=== PATIENT | male | born 1960 | race Caucasian/White ===

== ENCOUNTER 2019-07-19 17:38 | Emergency (ER) | payer OTHER, SELFPAY ==
[2019-07-19 17:40] VITALS: BP 138/82; PULSE 60; RESP 12; TEMP 36.7; O2SAT 97
--- NOTE | 2019-07-19 17:52 | DI.RAD.S_ITS ---
PROCEDURE: XR CHEST 1V INDICATIONS: chest pain TECHNIQUE: One view of the chest was acquired. COMPARISON: None. FINDINGS: Surgical changes and devices: None. Lungs and pleura: Lungs are clear. No pleural effusions or pneumothorax. Mediastinum: Mediastinal contours appear normal. Heart size is normal. Bones and chest wall: No suspicious bony lesions. Overlying soft tissues appear unremarkable. IMPRESSION: No acute cardiopulmonary abnormalities or focal airspace disease. Dictated by: Dilan Andrade M.D. on 07/19/2019 at 18:59 Approved by: Dilan Andrade M.D. on 07/19/2019 at 18:59
[2019-07-19] MEDS: ASPIRIN 81 MG CHEW TAB 324 MG PO (17:57)
[2019-07-19 18:00] VITALS: BP 138/79; PULSE 59; RESP 18; O2SAT 98
--- NOTE | 2019-07-19 18:04 | ED_ITS ---
HPI - Chest Pain General Chief Complaint: Chest Pain Stated Complaint: chest pressure Time Seen by Provider: 07/19/19 18:03 Source: patient Mode of arrival: Ambulatory Limitations: no limitations History of Present Illness HPI narrative: 59-year-old male who initial chief complaint was chest pressure however upon further evaluation patient describes more of palpitations. He states he has had palpitations in the past they seem to be more frequent recently. He states that yesterday he was at work sitting in his chair when he had several what he describes as hard beats in a row. He states he did have some chest pressure at that time but it resolved when the palpitations resolved. No chest pain. No shortness of breath. No lightheadedness. Also describes other sensations in his lower extremities to include tingling down to his toes. He is not currently having that. He also states that it feels like he has a phone in his left front pocket that is vibrating. No history of diabetes. No history of neuropathy. No back pain. Related Data Allergies Allergy/AdvReac Type Severity Reaction Status Date / Time No Known Drug Allergies Allergy Verified 07/19/19 17:52 Review of Systems Constitutional Constitutional: Denies fever(s), Denies headache(s) and Denies weakness ENT Ears, Nose, Mouth, and Throat: Denies vertigo, Denies dizziness, Denies headache(s) and Denies disequilibrium Cardiovascular Cardiovascular: Denies chest pain, Denies syncope, Denies lightheadedness, Denies radiating jaw, neck or arm pain, Reports palpitations and Denies dyspnea Respiratory Respiratory: Denies dyspnea Gastrointestinal Gastrointestinal: Denies abdominal pain, Denies nausea and Denies vomiting Genitourinary Genitourinary: Denies dysuria Musculoskeletal Musculoskeletal: Denies myalgias, Denies arthralgias and Reports tingling Integumentary/Breasts Skin/Breast: Denies lesions and Denies rash Neurologic Neurologic: Denies behavioral changes, Denies confusion, Denies vertigo, Denies dizziness, Denies syncope, Denies headache(s), Reports tingling, Reports paresthesias, Denies disequilibrium and Denies weakness Psychiatric Psychiatric: Denies behavioral changes and Denies confusion Endocrine Endocrine: Reports palpitations Hematologic/Lymphatic Hematologic/Lymphatic: Denies easy bleeding and Denies easy bruising Allergic/Immunologic Allergic/Immunologic: Denies urticaria Patient History Medical History Muscle spasm of right shoulder (Inactive) Social History Smoking Status: Former smoker Smoking Status: Former smoker alcohol intake frequency: 3 or more drinks per day Exam Initial Vital Signs Initial Vital Signs: Vital Signs Temperature 98.1 F 07/19/19 17:40 Pulse Rate 60 07/19/19 17:40 Respiratory Rate 12 07/19/19 17:40 Blood Pressure 138/82 07/19/19 17:40 Pulse Oximetry 97 07/19/19 17:40 Const General: cooperative, healthy appearing, comfortable, well developed and well groomed Limitations: mental status not altered HENMT Head: normal to inspection and normocephalic Resp Effort & Inspection: normal respiratory effort Auscultation: clear to auscultation bilaterally Cardio Rate: regular rate Rhythm: regular rhythm Pulses: radial pulses present and dorsalis pedis present GI Inspection: non-distended Palpation: soft Skin Lesions: no lesions Rashes: no rashes Neuro General: alert, awake and oriented x3 Cognition: normal cognition Speech: speech normal Gait: normal gait Motor: muscle tone normal throughout Sensory Exam: no sensory deficits noted Extrem General: normal to inspection and capillary refill normal Psych Appearance: grossly normal and well kempt Scores GCS Kartik coma scale eye opening: Spontaneous Kartik coma scale verbal response: Orientated [place] coma scale motor response: Obey commands Kartik coma scale total score: 15 HEART Score Heart Score history: Slightly Suspicious Heart Score EKG: Normal Heart Score Age: 45-64 years old Heart Score risk factors: No known risk factors Heart Score troponin: < or = to normal limit Heart Score Total: 1 Course Orders Ordered: ED Orders 07/19/19 17:52 XR chest 1V Stat EKG-12 Lead Stat 07/19/19 18:28 BNP [NT-proBNP (BNP-Adult 18+)] Stat Complete Blood Count AUTO DIFF Stat Comprehensive Metabolic Panel Stat Lipase Stat Partial Thromboplastin Time Stat Prothrombin Time INR Stat TSH w/ Reflex to FT4 Stat Troponin & CK Cardiac Panel Stat Discontinued Medications Aspirin (Aspirin Chew) 324 mg PO NOW ONE Stop: 07/19/19 17:53 Last Admin: 07/19/19 17:57 Dose: 324 mg Documented by: FARHEEN Vital Signs Vital signs: Vital Signs - 8 hr 07/19/19 18:31 07/19/19 19:00 07/19/19 20:02 Pulse Rate 65 59 L 65 Respiratory Rate 12 18 16 Blood Pressure 145/78 H Blood Pressure [Left Arm] 142/82 H 140/81 Pulse Oximetry 98 98 98 MDM - Chest Pain Lab Data Attestation: I reviewed the patient's lab results. Result diagrams: 07/19/19 18:28 07/19/19 18:28 Labs: Lab Results 07/19/19 07/19/19 07/19/19 Range/Units 18:28 18:28 18:28 WBC 6.0 (4.5-11.0) X10^3/uL RBC 4.91 (4.5-5.9) X10^6/uL Hgb 15.1 (13.5-17.5) g/dL Hct 44.0 (41-53) % MCV 89.7 (80-100) fL MCH 30.7 (26-34) PG MCHC 34.2 (30-36) % RDW 13.2 (11.6-14.8) % Plt Count 186 (150-400) X10^3/uL Neut % (Auto) 59.1 (50-75) % Lymph % (Auto) 31.7 (25-40) % Beckham % (Auto) 7.4 (3-14) % Eos % (Auto) 1.0 L (2-4) % Baso % (Auto) 0.8 (0-2) % Neut # (Auto) 3600 (7223-8043) /uL Lymph # (Auto) 1900 (8877-1859) /uL Beckham # (Auto) 400 (0-900) /uL Eos # (Auto) 100 (0-450) /uL Baso # (Auto) 0 (0-100) /uL PT 12.2 (10.1-12.7) SECONDS INR 1.1 (0.9-1.3) APTT 36 (26.4-36.2) SECONDS Sodium 139 (137-145) mmol/L Potassium 3.7 (3.4-5.1) mmol/L Chloride 102 (98-107) mmol/L Carbon Dioxide 27 (22-32) mmol/L BUN 16 (9-20) mg/dL Creatinine 0.70 (0.66-1.25) mg/dL Estimated GFR > 60.0 (>60) mL/min BUN/Creatinine Ratio 22.9 H (6-22) Glucose 105 H (70-100) mg/dL Calcium 9.6 (8.4-10.2) mg/dL Total Bilirubin 1.5 H (0.2-1.3) mg/dL AST 39 (17-59) IU/L ALT 46 (<50) IU/L Alkaline Phosphatase 71 (38-126) U/L Total Creatine Kinase 63 (55-170) U/L CK-MB (CK-2) TNP CK-MB (CK-2) Rel Index TNP Troponin I < 0.012 (0.01-0.034) ng/mL NT-Pro-B Natriuret Pep 55 (<125) pg/mL Total Protein 7.9 (6.3-8.2) g/dL Albumin 4.7 (3.5-5.0) g/dL Globulin 3.2 (1.7-4.1) g/dL Albumin/Globulin Ratio 1.5 (1.0-2.8) Lipase 250 (23-300) U/L TSH (0.47-4.68) uIU/mL 07/19/ Range/Units 18:28 WBC (4.5-11.0) X10^3/uL RBC (4.5-5.9) X10^6/uL Hgb (13.5-17.5) g/dL Hct (41-53) % MCV (80-100) fL MCH (26-34) PG MCHC (30-36) % RDW (11.6-14.8) % Plt Count (150-400) X10^3/uL Neut % (Auto) (50-75) % Lymph % (Auto) (25-40) % Beckham % (Auto) (3-14) % Eos % (Auto) (2-4) % Baso % (Auto) (0-2) % Neut # (Auto) (0691-4271) /uL Lymph # (Auto) (6308-2275) /uL Beckham # (Auto) (0-900) /uL Eos # (Auto) (0-450) /uL Baso # (Auto) (0-100) /uL PT (10.1-12.7) SECONDS INR (0.9-1.3) APTT (26.4-36.2) SECONDS Sodium (137-145) mmol/L Potassium (3.4-5.1) mmol/L Chloride (98-107) mmol/L Carbon Dioxide (22-32) mmol/L BUN (9-20) mg/dL Creatinine (0.66-1.25) mg/dL Estimated GFR (>60) mL/min BUN/Creatinine Ratio (6-22) Glucose (70-100) mg/dL Calcium (8.4-10.2) mg/dL Total Bilirubin (0.2-1.3) mg/dL AST (17-59) IU/L ALT (<50) IU/L Alkaline Phosphatase (38-126) U/L Total Creatine Kinase (55-170) U/L CK-MB (CK-2) CK-MB (CK-2) Rel Index Troponin I (0.01-0.034) ng/mL NT-Pro-B Natriuret Pep (<125) pg/mL Total Protein (6.3-8.2) g/dL Albumin (3.5-5.0) g/dL Globulin (1.7-4.1) g/dL Albumin/Globulin Ratio (1.0-2.8) Lipase (23-300) U/L TSH 1.64 (0.47-4.68) uIU/mL Imaging Data Chest x-ray: Radiologist's Impression: [address] [address] XRay Report Signed Patient: Antwan Oneill JMR#: [id number] : 2Acct:[id number] Age/Sex: 59 / MDate of Service: 07/19/19 Loc: ED Accession Number: [id number] Procedure: XR chest 1V Ordering Provider: Jamar Thompson MD PROCEDURE: XR CHEST 1V INDICATIONS: chest pain TECHNIQUE: One view of the chest was acquired. COMPARISON: None. FINDINGS: Surgical changes and devices: None. Lungs and pleura: Lungs are clear. No pleural effusions or pneumothorax. Mediastinum: Mediastinal contours appear normal. Heart size is normal. Bones and chest wall: No suspicious bony lesions. Overlying soft tissues appear unremarkable. IMPRESSION: No acute cardiopulmonary abnormalities or focal airspace disease. Dictated by: Dilan Andrade M.D. on 07/19/2019 at 18:59 Approved by: Dilan Andrade M.D. on 07/19/2019 at 18:59 ECG Data Attestation: I personally reviewed and interpreted this ECG as follows: Prior ECG tracings: not available for review Interpretation: Sinus bradycardia Ventricular rate of 58 Normal QRS Normal QTC No ST T wave changes MDM Narrative Medical decision making narrative: Patient with negative workup here. Low suspicion for ACS. He has a low risk heart score. Upon further questioning it does appear that his symptoms were palpitations not chest pain. He did have some symptoms that corresponded to PVCs on the monitor. His EKG was unremarkable. I discussed this with the patient. I do suspect that he is having symptomatic PVCs. We did discuss potentially getting a Holter monitor ordered by his primary provider. We did discuss return precautions and follow- up instructions. He expressed understanding and agreement with plan. Discharge Plan Departure Patient Disposition: Home Clinical Impression: Heart palpitations, Symptomatic PVCs Discharge Date/Time: 07/19/19 20:02 Instructions: Premature Ventricular Beats Activity Restrictions/Additional Instructions: Recommend you contact your primary doctor to discuss the indications for a Holter monitor. Return to the emergency department for any new or worsening sym ptoms like we discussed.
[2019-07-19 18:31] VITALS: BP 142/82; PULSE 65; RESP 12; O2SAT 98
[2019-07-19 18:41] LABS: Add Manual Diff / Slide Review NO; Basophils Absolute Auto 0 /uL (0-100); Basophils Percent Auto 0.8 % (0-2); Eosinophils Absolute Auto 100 /uL (0-450); Hemoglobin 15.1 g/dL (13.5-17.5); Lymphocytes Absolute Auto 1900 /uL (1100-4500); Lymphocytes Percent Auto 31.7 % (25-40); Mean Corpuscular HGB Conc 34.2 % (30-36); Mean Corpuscular Hemoglobin 30.7 PG (26-34); Mean Corpuscular Volume 89.7 fL (80-100); Monocytes Absolute Auto 400 /uL (0-900); Monocytes Percent Auto 7.4 % (3-14); Neutrophils Absolute Auto 3600 /uL (1500-7000); Neutrophils Percent Auto 59.1 % (50-75); Platelet Count 186 X10^3/uL (150-400); Red Blood Cell Count 4.91 X10^6/uL (4.5-5.9); Red Cell Distribution Width 13.2 % (11.6-14.8)
[2019-07-19 18:46] LABS: INR 1.1 (0.9-1.3); Prothrombin Time 12.2 SECONDS (10.1-12.7)
[2019-07-19 18:49] LABS: PTT Partial Thromboplastin Tim 36 SECONDS (26.4-36.2)
[2019-07-19 18:54] LABS: Alanine Aminotransferase 46 IU/L (<50); Albumin 4.7 g/dL (3.5-5.0); Albumin Globulin Ratio 1.5 (1.0-2.8); Alkaline Phosphatase 71 U/L (38-126); Aspartate Aminotransferase 39 IU/L (17-59); BUN Creatinine Ratio 22.9 (6-22); Bilirubin Total 1.5 mg/dL (0.2-1.3); Blood Urea Nitrogen 16 mg/dL (9-20); Calcium 9.6 mg/dL (8.4-10.2); Carbon Dioxide 27 mmol/L (22-32); Chloride 102 mmol/L (98-107); Creatine Kinase 63 U/L (55-170); Estimated Glomerular Filt Rate > 60.0 mL/min (>60); Globulin 3.2 g/dL (1.7-4.1); Glucose 105 mg/dL (70-100); Lipase 250 U/L (23-300); Potassium 3.7 mmol/L (3.4-5.1); Sodium 139 mmol/L (137-145); Total Protein 7.9 g/dL (6.3-8.2)
[2019-07-19 18:56] LABS: HEMOLYSIS < 15 (0-50)
--- NOTE | 2019-07-19 18:59 | PC.NURSE ---
pt reports, always has irregular heart beat for 1.5 months, worsen today. also drinks alot and last drink thursday, dyspneic on exertion, denies nausea or vomiting. denies fever,coughing or chills.
[2019-07-19 19:00] VITALS: BP 140/81; PULSE 59; RESP 18; O2SAT 98
[2019-07-19 19:08] LABS: NT-proBNP (BNP-Adult 18+) 55 pg/mL (<125); Troponin I < 0.012 ng/mL (0.01-0.034)
[2019-07-19 19:36] LABS: TSH w/ Reflex to FT4 1.64 uIU/mL (0.47-4.68)
[2019-07-19 20:02] VITALS: BP 145/78; PULSE 65; RESP 16; O2SAT 98
== END 2019-07-19 20:02 | disposition home or self-care (01) ==
PROVIDERS: Emergency Medicine; Emergency Provider Emergency Medicine
DX: R00.2 Palpitations (principal); I49.3 Ventricular premature depolarization
CPT/HCPCS: 36415; 71045; 80053; 82550; 83690; 83880; 84443; 84484; 85025; 85610; 85730; 93005; 99284; 99285

== ENCOUNTER 2023-08-18 11:42 | Day surgery (SDC) | payer OTHER, SELFPAY ==
--- NOTE | 2023-08-18 | PATH_ITS ---
[facility] Accession Number: [id number] No. of containers..01 Tissue . 01 Material submitted: . esophagus, E-G Junction - GE JUNCTION . 01 Diagnosis: GASTROESOPHAGEAL JUNCTION, BIOPSY: Columnar mucosa with mild chronic inflammation. Negative for intestinal metaplasia. Negative for dysplasia and malignancy. . [facility] [address] 08/21/2023 1455 Local . 01 Electronically signed: . Nat Dooley MD, Pathologist NPI- [id number] . 01 Gross description: . GE JUNCTION: Received in formalin is 1 fragment(s) of roman, soft tissue measuring 0.3 x 0.2 x 0.2 cm submitted entirely in 1 cassette(s) /PATRIZIA 08/19/20232034 Local . 01 Microscopic: . An ABPAS stain was performed to evaluate for intestinal metaplasia, and is negative. The control stain showed appropriate reactivity. . 01 Pathologist provided ICD-10: R10.13 . 01 CPT . 447859, 712369 Specimen Comment: A courtesy copy of this report has been sent to [phone] Performed at: 01 [facility] [address] [place] [address], [place], [place] [id number] MD Anastacio Ag MD Phone: [phone]
--- NOTE | 2023-08-18 13:06 | SUR.PREOP ---
Delay for colonoscopy explained to patient and . V/U. Patient would like to proceed.
[2023-08-18 13:34] VITALS: BP 144/74; PULSE 61; RESP 18; TEMP 36.1; O2SAT 98
[2023-08-18] MEDS: LACTATED RINGERS 1,000 ML 42 ML IV (13:48)
--- NOTE | 2023-08-18 14:28 | P.HP_ITS ---
History of Present Illness History of Present Illness Date Patient Seen: 08/18/23 Time Patient Seen: 14:29 Chief complaint: Screening Colonoscopy Narrative: 63-year-old male here for screening colonoscopy and diagnostic Esophagogastroduodenoscopy. Last colonoscopy 10 years ago normal. No family history of intestinal malignancy. He occasionally has difficulty swallowing the sensation that something is stuck in his throat. He has a history of GERD for which he takes omeprazole as needed. [facility] Medical History Muscle spasm of right shoulder Social History Smoking Status: Former smoker alcohol intake: current Meds Home Medications and Allergies Home Medications Medication Instructions Recorded Confirmed Type losartan 50 mg tablet 50 mg PO DAILY blood pressure 08/18/23 08/18/23 History Allergies Allergy/AdvReac Type Severity Reaction Status Date / Time No Known Drug Allergies Allergy Verified 08/18/23 13:26 Exam Vital Signs (past 8 hours): - 08/18/23 13:34 Temperature 96.9 F L Pulse Rate 61 Respiratory Rate 18 Blood Pressure 144/74 H Pulse Oximetry 98 Oxygen Delivery Method Room Air Oxygen Delivery Method Room Air Narrative Exam Narrative: General adult man alert oriented no acute distress Chest nonlabored respiration Extremities warm well perfused Assessment & Plan Assessment and plan (1) Esophageal dysphagia: Status: Acute Assessment & Plan narrative: 63-year-old man with esophageal dysphagia here for diagnostic esophagogastroduodenoscopy and colonoscopy. Technical details were discussed. Risks, benefits, alternatives explained. Risks including but not limited to myocardial infarction, aspiration, bleeding, pain, missed lesion, incomplete examination, need for further radiographic studies, intestinal injury, and need for major abdominal surgery were discussed. All questions were answered to their satisfaction, and they are in agreement with this plan.
[2023-08-18 15:05] VITALS: BP 107/58; PULSE 60; RESP 15; TEMP 36.9; O2SAT 97
[2023-08-18 15:10] VITALS: BP 109/63; PULSE 62; RESP 14; TEMP 36.9; O2SAT 96
--- NOTE | 2023-08-18 15:11 | PM.OP.EC ---
Operative Date/Time/Diagnoses Date of procedure: 08/18/23 Time of procedure: 15:11 Pre-op diagnosis: Esophageal dysphagia, colorectal screening Procedure & Clinicians Study performed: Esophagogastroduodenoscopy Esophageal dilation Colonoscopy Same procedure as scheduled: Yes Indications: 63-year-old male history of GERD here with esophageal dysphagia for diagnostic EGD and screening colonoscopy. Surgeon: Mendoza Holloway Procedure Notes Procedure in detail: The history and physical was performed/updated and the patient is ASA class is 2. The procedure was discussed in detail with the patient. Potential risks complications including infection, bleeding, missed diagnosis, perforation, need for surgery, and were explained. Their questions were answered and informed consent was obtained. Patient placed in left lateral decubitus position. Time out was performed. Procedural sedation was administered by Anesthesia. A bite block was placed. the scope was inserted into the mouth and advanced through the esophagus and into the stomach. the pylorus was intubated and the duodenum was examined to the 2nd portion.. The scope was retroflexed within the stomach. The stomach was then decompressed and scope pulled back to the GE junction. The scope was then removed Examination began with a thorough inspection of the perianal area there was no evidence of fissures, fistulae, external hemorrhoids or cutaneous malignancy. The colonoscopy scope was then placed into the anal canal and was advanced to the cecum, which was identified by the ileocecal valve, the appendiceal orifice and the confluence of the taenia. The scope was then slowly withdrawn examining colon thoroughly in all directions, irrigating it of any residual stool. FINDINGS -Distal esophageal stricture at GE junction. Biopsies of the GE junction 40 cm taken with forceps. Stricture balloon dilated to 20 mm under direct visualization. -normal colonoscopy. No masses polyps or inflammation The patient tolerated the procedure well. They will be discharged once criteria are met. The prep was of good/excellent quality. The withdrawl time was 7 minutes. Specimen(s): other (GE junction) Complications: none Impression: Benign esophageal stricture Post-procedure Plan for aftercare: Pepcid once daily Repeat colonoscopy 10 years Disposition: same day surgery
[2023-08-18 15:20] VITALS: BP 108/63; PULSE 59; RESP 12; TEMP 36.9; O2SAT 97
== END 2023-08-18 15:38 | disposition home or self-care (01) ==
PROVIDERS: PCP Nurse Practitioner Family; Referring Provider Surgery; Visit Provider Surgery
PROC: 0DJ08ZZ Inspection of Upper Intestinal Tract, Via Natural or Artificial Opening Endoscopic (ICD-10-PCS; CPT 43235; principal; 2023-08-18 12:45)
PROC: 0DJD8ZZ Inspection of Lower Intestinal Tract, Via Natural or Artificial Opening Endoscopic (ICD-10-PCS; CPT 45378; 2023-08-18 12:45)
DX: Z12.11 Encounter for screening for malignant neoplasm of colon (principal); R13.14 Dysphagia, pharyngoesophageal phase; K21.00 Gastro-esophageal reflux disease with esophagitis, without bleeding; K22.2 Esophageal obstruction
CPT/HCPCS: 43249; 45378; 43239; J2704